=== PATIENT | female | born 1955 | race Caucasian/White ===

== ENCOUNTER → 2020-11-14 | Outpatient (CLI) | payer MEDICARE ==
[~2020-11-14] MED LIST: NAPROSYN500 MG PO
[2020-11-14 10:43] LABS: HEMOGLOBIN 11.9 gm/dl (12.3-15.3); RED BLOOD COUNT 3.69 M/UL (4.00-5.10); WHITE BLOOD COUNT 9.7 K/UL (4.5-11.0)
[2020-11-14 11:04] LABS: BUN/CREATININE RATIO 11 (0-10)
[2020-11-15 09:15] LABS: VITAMIN D, 25-HYDROXY 46.5 ng/mL (30.0-100.0)
== END ==
LOC: LAB 09:32
PROVIDERS: Internal Medicine
DX: E55.9 Vitamin D deficiency, unspecified (principal); R76.0 Raised antibody titer; M81.0 Age-related osteoporosis without current pathological fracture; R79.89 Other specified abnormal findings of blood chemistry; D89.89 Other specified disorders involving the immune mechanism, not elsewhere classified; R76.8 Other specified abnormal immunological findings in serum
CPT/HCPCS: 36415; 80053; 82164; 85025; 85549

== ENCOUNTER → 2021-10-19 | Outpatient (CLI) | payer MEDICARE ==
[~2021-10-19] MED LIST changes: +ADVIL100 M1 PO; +AMBIEN10 MG PO; +ASPIRIN CHEWABL81 MG PO; +CRESTOR10 MG PO; +FIBERCON625 MG PO; +FOSAMAX70 MG PO; +GABAPENTIN300 MG PO; +HYDROCODON-ACE1 EAC2 PO; +INDERAL TAB 1010 MG PO; +KLOR-CON M2020 MEQ PO; +MAGNESIUM400 M2 PO; +MELOXICAM7.5 MG PO; +MULTIPLE VITAM1 EACH PO; +MYRBETRIQ50 MG PO; +NUVIGIL150 MG PO; +PANTOPRAZOLE SO20 MG PO; +PROBIOTIC1 EAC1 PO; +SUPER CALCIUM600 MG PO; +TRAZODONE HCL50 MG PO
[2021-10-19 10:52] LABS: HEMOGLOBIN 8.4 gm/dl (12.3-15.3); RED BLOOD COUNT 2.83 M/UL (4.00-5.10); WHITE BLOOD COUNT 10.6 K/UL (4.5-11.0)
[2021-10-19 11:27] LABS: BUN/CREATININE RATIO 19 (0-10)
[2021-10-20 08:12] LABS: VITAMIN D, 25-HYDROXY 48.8 ng/mL (30.0-100.0)
[2021-10-22 14:11] LABS: A/G RATIO 0.9 (0.7-1.7); ALPHA-1-GLOBULIN 0.3 g/dL (0.0-0.4); ALPHA-2-GLOBULIN 0.8 g/dL (0.4-1.0); BETA GLOBULIN 0.8 g/dL (0.7-1.3); GAMMA GLOBULIN 1.6 g/dL (0.4-1.8); GLOBULIN, TOTAL 3.4 g/dL (2.2-3.9); M-SPIKE 1.2 g/dL (Not Observed); PROTEIN, TOTAL, SERUM 6.4 g/dL (6.0-8.5)
== END ==
LOC: LAB 09:44
PROVIDERS: Internal Medicine
DX: Z12.31 Encounter for screening mammogram for malignant neoplasm of breast (principal); M48.50XA Collapsed vertebra, not elsewhere classified, site unspecified, initial encounter for fracture; R76.0 Raised antibody titer; E55.9 Vitamin D deficiency, unspecified; R70.0 Elevated erythrocyte sedimentation rate; M81.0 Age-related osteoporosis without current pathological fracture; R53.83 Other fatigue; R79.89 Other specified abnormal findings of blood chemistry
CPT/HCPCS: 36415; 71046; 77063; 77067; 80053; 82728; 84155; 84165; 85025

== ENCOUNTER → 2021-10-19 | Outpatient (CLI) | payer MEDICARE | LOC: EXRD 10:39 | DX: M81.0 Age-related osteoporosis without current pathological fracture (principal) | CPT/HCPCS: 77080 ==

== ENCOUNTER → 2022-03-07 | Outpatient (CLI) | payer MEDICARE ==
[~2022-03-07] MED LIST changes: +AZITHROMYCIN500 MG PO; +CYCLOBENZAPRINE10 MG PO; +DICLOFENAC SODI50 MG PO; -GABAPENTIN300 MG PO; +GABAPENTIN600 MG PO; +IPRAT-ALBUT 0.5-3 ML NEB; +LEVOFLOXACIN750 MG PO; +LORATADINE10 MG PO; +ONE DAILY WOME1 EAC2 PO; +OXYCODONE-ACET1 EACH PO; -PANTOPRAZOLE SO20 MG PO; +PROTONIX40 MG PO
== END ==
LOC: KOH-I 09:58
DX: J18.9 Pneumonia, unspecified organism (principal); R91.8 Other nonspecific abnormal finding of lung field
CPT/HCPCS: 71046